=== PATIENT | male | born 1985 | race American Indian/Alaskan Native ===

== ENCOUNTER 2019-09-24 18:18 | Observation (INO) | payer OTHER ==
--- NOTE | 2019-09-24 18:45 | Event Note ---
ED Screening Note ED Screening Note: states that two weeks ago he found out he has high blood pressure when he was arrested states he has been taking his labetalol 20mg states that he began having chest tightness today states that he had tingling sensation in his right arm has not seen a doctor in 2 years PMHx none no allergies to meds +tobacco +ETOH, 1/2 pint a day of liquor and 1 beer a day has used cocaine before, two days ago This initial assessment/diagnostic orders/clinical plan/treatment(s) is/are subject to change based on patients health status, clinical progression and re- assessment by fellow clinical providers in the ED. Further treatment and workup at subsequent clinical providers discretion. Patient/guardian urged not to elope from the ED as their condition may be serious if not clinically assessed and managed. Initial orders include: CP protocol
[2019-09-24 19:01] LABS: Basophils # (Auto) 0.1 K/mm3 (0.0-0.1); Basophils % (Auto) 1.1 % (0.0-1.8); Eosinophils # (Auto) 0.3 K/mm3 (0.0-0.4); Eosinophils % (Auto) 2.9 % (0.0-4.3); Hematocrit 48.3 % (35.5-45.6); Hemoglobin 16.8 gm/dl (11.8-15.2); Lymphocytes # (Auto) 3.1 K/mm3 (1.2-5.4); Lymphocytes % (Auto) 28.3 % (13.4-35.0); Mean Corpuscular HGB Conc 35 % (32-34); Mean Corpuscular Volume 94 fl (84-94); Monocytes # (Auto) 0.7 K/mm3 (0.0-0.8); Monocytes % (Auto) 6.3 % (0.0-7.3); Platelet Count 287 K/mm3 (140-440); Red Blood Count 5.13 M/mm3 (3.65-5.03)
[2019-09-24 19:04] LABS: Bilirubin,Urine NEG (Negative); Blood,Urine NEG (Negative); Color,Urine Yellow (Yellow); Mucus,Urine FEW /HPF
[2019-09-24 19:12] LABS: Amphetamine Screen,Urine PRESUMPTIVE NEGATIVE; Benzodiazepines Screen,Urine PRESUMPTIVE NEGATIVE; Cannabinoid Screen,Urine PRESUMPTIVE NEGATIVE; Methadone Screen,Urine PRESUMPTIVE NEGATIVE; Opiate Screen,Urine PRESUMPTIVE NEGATIVE
[2019-09-24 19:14] LABS: INR 0.98 (0.87-1.13); Partial Thromboplastin Time 27.4 Sec. (24.2-36.6)
[2019-09-24 19:25] LABS: Cocaine Screen,Urine PRESUMPTIVE POSITIVE
[2019-09-24 19:27] LABS: Alanine Aminotransferase 37 units/L (7-56); Albumin 4.8 g/dL (3.9-5); BUN/Creatinine Ratio 9; Blood Urea Nitrogen 10 mg/dL (9-20); Calcium 9.9 mg/dL (8.4-10.2); Hemolysis Index 9
--- NOTE | 2019-09-24 19:35 | XRay Report ---
CHEST 2 VIEWS INDICATION / CLINICAL INFORMATION: Chest Pain. COMPARISON: None available. FINDINGS: SUPPORT DEVICES: None. HEART / MEDIASTINUM: No significant abnormality. LUNGS / PLEURA: No significant pulmonary or pleural abnormality. No pneumothorax. ADDITIONAL FINDINGS: No significant additional findings. IMPRESSION: 1. No acute findings. Signer Name: Linda Pereira MD Signed: 09/24/2019 7:31 PM Workstation Name: [id number]
[2019-09-24] MEDS ORDERED: ASPIRIN 325 MG TAB PO ONE (22:07)
--- NOTE | 2019-09-24 22:14 | Emergency Department Report ---
ED Chest Pain HPI - General Chief Complaint: High BP Stated Complaint: BP HIGH Time Seen by Provider: 09/24/19 18:41 Source: patient Mode of arrival: Ambulatory Limitations: No Limitations - History of Present Illness Initial Comments: 34-year-old male with history of hypertension presents to ED with chest pain. Patient states he was driving down the street and began to experience left sternal pressure in his chest. Patient reports pain radiating into the right arm. He reports associated nausea and diaphoresis with this pain. Patient denies chest pain, leg pain or shortness of breath. He denies fever or cough. Patient states he found out that his blood pressure was elevated after being incarcerated. Patient has been taking his 's labetalol 200 mg. Patient reports cocaine use 3 days ago. He also reports daily alcohol use. Patient does not currently have a PCP. MD Complaint: chest pain -: This afternoon Onset: during rest Pain Location: substernal Pain Radiation: RUE Severity: moderate Quality: pressure Consistency: now resolved Improves With: nothing Worsens With: nothing re: nausea, diaphoresis. denies: vomting, dyspnea, sense of impending doom Other Symptoms: denies: cough, fever, leg swelling Treatments Prior to Arrival: none - Related Data Previous Rx's Medication Instructions Recorded Last Taken Type Aspirin EC [Halfprin EC] 81 mg PO QDAY #30 tablet. 09/25/19 Unknown Rx Chlorthalidone [Thalitone] 25 mg PO QDAY #30 tablet 09/25/19 Unknown Rx NIFEdipine XL [Procardia Xl] 60 mg PO QDAY #30 tablet 09/25/19 Unknown Rx Allergies Allergy/AdvReac Type Severity Reaction Status Date / Time No Known Allergies Allergy Unverified 09/24/19 18:21 Heart Score - HEART Score History: Moderately suspicious EKG: Non-specific Age: < 45 Risk factors: 1-2 risk factors Troponin: < normal limit HEART Score: 3 ED Review of Systems ROS: Stated complaint: BP HIGH Other details as noted in HPI Comment: All other systems reviewed and negative Constitutional: denies: chills, fever Respiratory: denies: cough, shortness of breath Cardiovascular: chest pain Gastrointestinal: nausea. denies: abdominal pain, vomiting Musculoskeletal: other (Denies leg pain or swelling) ED Past Medical Hx - Past Medical History Previous Medical History?: No - Surgical History Past Surgical History?: No - Social History Smoking Status: Current Every Day Smoker Substance Use Type: Alcohol - Medications Home Medications: Home Medications Medication Instructions Recorded Confirmed Last Taken Type Aspirin EC [Halfprin EC] 81 mg PO QDAY #30 tablet. 09/25/19 Unknown Rx Chlorthalidone [Thalitone] 25 mg PO QDAY #30 tablet 09/25/19 Unknown Rx NIFEdipine XL [Procardia Xl] 60 mg PO QDAY #30 tablet 09/25/19 Unknown Rx ED Physical Exam - General Limitations: No Limitations ED Course Vital Signs 09/24/19 09/24/19 09/24/19 18:21 21:46 22:00 Temperature 98 F Pulse Rate 100 H Respiratory 18 Rate Blood Pressure 189/123 170/115 O2 Sat by Pulse 100 98 98 Oximetry 09/24/19 09/24/19 09/24/19 22:16 22:30 22:33 Temperature Pulse Rate 72 Respiratory Rate Blood Pressure 170/115 207/141 207/141 O2 Sat by Pulse 98 99 Oximetry 09/24/19 09/24/19 09/24/19 22:46 22:51 23:00 Temperature 98.4 F Pulse Rate Respiratory Rate Blood Pressure 170/115 168/116 O2 Sat by Pulse 98 98 Oximetry 09/24/19 09/24/19 09/24/19 23:16 23:20 23:30 Temperature Pulse Rate 81 Respiratory Rate Blood Pressure 168/116 168/116 O2 Sat by Pulse 98 97 Oximetry 09/24/19 23:38 Temperature Pulse Rate Respiratory Rate Blood Pressure 168/116 O2 Sat by Pulse 97 Oximetry ED Medical Decision Making - Lab Data Result diagrams: 09/25/19 05:07 09/25/19 05:07 - EKG Data -: EKG Interpreted by Ar EKG shows normal: sinus rhythm, axis, intervals, QRS complexes Rate: normal - EKG Data Interpretation: other (lateral T wave inversions) - Radiology Data Radiology results: report reviewed, image reviewed - Medical Decision Making 34 yo M w/ uncontrolled HTN, chest pain, cocaine abuse, T wave inversions on EKG. Troponin negative. Chest pain improved currently. Will admit to hospitalist for cardiac workup. - Differential Diagnosis ACS, HTN, cocaine abuse Critical care attestation.: If time is entered above; I have spent that time in minutes in the direct care of this critically ill patient, excluding procedure time. ED Disposition Clinical Impression: Acute chest pain, Hypertensive urgency, Cocaine abuse Disposition: DC-09 OP ADMIT IP TO THIS HOSP Is pt being admited?: Yes Condition: Stable Time of Disposition: 22:15
[2019-09-24] MEDS ORDERED: NITROGLYCERIN 0.4 MG TAB SUBL SL PRN (23:16)
[2019-09-24] MEDS ORDERED: ONDANSETRON 4 MG/2 ML INJ IV PRN (23:16)
[2019-09-24] MEDS ORDERED: MAGNESIUM HYDROXIDE (MOM) ORAL LIQD UDC PO PRN (23:16)
[2019-09-24] MEDS ORDERED: hydrALAZINE 20 MG/1 ML INJ IV PRN (23:16)
[2019-09-24] MEDS ORDERED: MORPHINE 2 MG/1 ML INJ IV PRN (23:16)
[2019-09-24] MEDS ORDERED: ACETAMINOPHEN 325 MG TAB PO PRN (23:16)
--- NOTE | 2019-09-24 23:28 | History and Physical Report ---
History of Present Illness Date of examination: 09/24/19 Date of admission: 09/24/19 22:16 Chief complaint: Chest pain History of present illness: 34-year-old male with known history of hypertension, cocaine abuse and current every day smoker presenting to the emergency room today complaining of left- sided chest pain. Chest pain is said to radiate into the right upper extremity. He has had associated nausea but no vomiting and he has had some diaphoresis. He denies any fever or chills, denies any headache or dizziness. There is no known relieving or exacerbating factor for his chest pain. He admits that he has not been quite compliant with his blood pressure medications. He has had to use his mother's labetalol occasionally for his blood pressure. He admits to cocaine use about 3 days ago and also drinks alcohol almost on a daily basis. Upon arrival in the emergency room blood pressure was quite elevated and was given some IV labetalol with some improvement. EKG revealed some T wave depression in the lateral leads Past History Past Medical History: hypertension Past Surgical History: No surgical history Social history: smoking (Current daily smoker), other (Moves cocaine occasionally, last use was about 5 days ago) Family history: hypertension Medications and Allergies Allergies Allergy/AdvReac Type Severity Reaction Status Date / Time No Known Allergies Allergy Unverified 09/24/19 18:21 Active Meds: Active Medications Acetaminophen (Tylenol) 650 mg PO Q4H PRN PRN Reason: Pain MILD(1-3)/Fever >100.5/VIDAL Aspirin (Ecotrin) 325 mg PO QDAY OLEGARIO Hydralazine HCl (Apresoline) 10 mg IV Q6HR PRN PRN Reason: FOR SBP > target Magnesium Hydroxide (Milk Of Magnesia) 30 ml PO Q4H PRN PRN Reason: Constipation Morphine Sulfate (Morphine) 2 mg IV Q5MIN PRN PRN Reason: Chest Pain unrelieved by NTG Nitroglycerin (Nitrostat) 0.4 mg SL Q5M PRN PRN Reason: Chest Pain Ondansetron HCl (Zofran) 4 mg IV Q8H PRN PRN Reason: Nausea And Vomiting Sodium Chloride (Sodium Chloride Flush Syringe 10 Ml) 10 ml IV BID OLEGARIO Sodium Chloride (Sodium Chloride Flush Syringe 10 Ml) 10 ml IV PRN PRN PRN Reason: LINE FLUSH Review of Systems Constitutional: no fever, no chills Ears, nose, mouth and throat: no nasal congestion, no sore throat Cardiovascular: chest pain, no palpitations, no lightheadedness Respiratory: no cough, no shortness of breath Gastrointestinal: no abdominal pain, no nausea, no vomiting, no constipation Genitourinary Male: no dysuria, no hematuria, no flank pain Musculoskeletal: no neck pain, no low back pain Integumentary: no rash, no pruritis Neurological: no headaches, no change in mentation, no confusion Psychiatric: no anxiety, no depression Exam - Constitutional Vitals: Temp Pulse Resp BP Pulse Ox 98.4 F 72 18 170/115 98 09/24/19 22:51 09/24/19 22:33 09/24/19 18:21 09/24/19 22:46 09/24/19 22:46 General appearance: Present: no acute distress, well-nourished - EENT Eyes: Present: PERRL, EOM intact. Absent: scleral icterus ENT: hearing intact, clear oral mucosa, dentition normal - Neck Neck: Present: supple, normal ROM - Respiratory Respiratory effort: normal Respiratory: bilateral: CTA - Cardiovascular Rhythm: regular Heart Sounds: Present: S1 & S2. Absent: gallop, systolic murmur, diastolic mur mur, rub - Extremities Extremities: no ischemia, pulses intact, pulses symmetrical, No edema, Full ROM Peripheral Pulses: within normal limits - Abdominal General gastrointestinal: Present: soft, non-tender, non-distended, normal bowel sounds - Integumentary Integumentary: Present: clear, warm, dry. Absent: jaundice, rash - Musculoskeletal Musculoskeletal: strength equal bilaterally - Psychiatric Psychiatric: appropriate mood/affect, intact judgment & insight, memory intact, cooperative - Neurologic Neurologic: CNII-XII intact, moves all extremities HEART Score - HEART Score Troponin: Troponin T < 0.010 ng/mL (0.00-0.029) 09/24/19 21:37 Results - Labs CBC & Chem 7: 09/25/19 05:07 09/24/19 18:49 Labs: Abnormal lab results 09/24/19 09/24/19 Range/Units 18:49 18:49 RBC 5.13 H (3.65-5.03) M/mm3 Hgb 16.8 H (11.8-15.2) gm/dl Hct 48.3 H (35.5-45.6) % MCH 33 H (28-32) pg MCHC 35 H (32-34) % RDW 13.0 L (13.2-15.2) % Glucose 116 H (75-100) mg/dL Total Protein 8.5 H (6.3-8.2) g/dL Assessment and Plan - Patient Problems (1) Acute chest pain Current Visit: Yes Status: Acute Plan to address problem: Patient admitted and placed on telemetry. Will check serial cardiac enzymes. Patient placed on daily aspirin, sublingual nitroglycerin and IV morphine as needed for chest pain. Patient will be scheduled for stress test. We will also place a consult to cardiology for evaluation. (2) Cocaine abuse Current Visit: Yes Status: Acute Plan to address problem: Patient counseled on quitting illicit drug use. (3) Hypertensive urgency Current Visit: Yes Status: Acute Plan to address problem: Patient placed on IV hydralazine as needed for blood pressure control. (4) DVT prophylaxis Current Visit: Yes Status: Acute Plan to address problem: Will place on subcutaneous Lovenox. (5) Full code status Current Visit: Yes Status: Acute
[2019-09-25] MEDS ORDERED: ZOLPIDEM 5 MG TAB PO PRN (00:01)
[2019-09-25 05:55] LABS: Basophils # (Auto) 0.1 K/mm3 (0.0-0.1); Basophils % (Auto) 0.9 % (0.0-1.8); Eosinophils # (Auto) 0.3 K/mm3 (0.0-0.4); Eosinophils % (Auto) 3.2 % (0.0-4.3); Hematocrit 44.3 % (35.5-45.6); Hemoglobin 15.7 gm/dl (11.8-15.2); Lymphocytes # (Auto) 2.6 K/mm3 (1.2-5.4); Lymphocytes % (Auto) 24.6 % (13.4-35.0); Mean Corpuscular HGB Conc 35 % (32-34); Mean Corpuscular Volume 94 fl (84-94); Monocytes # (Auto) 0.7 K/mm3 (0.0-0.8); Monocytes % (Auto) 6.2 % (0.0-7.3); Platelet Count 243 K/mm3 (140-440); Red Blood Count 4.73 M/mm3 (3.65-5.03); Red Cell Distribution Width 12.9 % (13.2-15.2)
[2019-09-25 06:10] LABS: BUN/Creatinine Ratio 13; Blood Urea Nitrogen 13 mg/dL (9-20); Calcium 9.6 mg/dL (8.4-10.2); Hemolysis Index 24
[2019-09-25] MEDS ORDERED: REGADENOSON 0.4 MG/5 ML INJ IV ONE ×2 (08:06→09:50)
[2019-09-25] MEDS ORDERED: ASPIRIN EC 325 MG TAB PO SCH (10:00)
[2019-09-25] MEDS ORDERED: NIFEdipine XL 60 MG TAB PO SCH (11:00)
[2019-09-25] MEDS ORDERED: CHLORTHALIDONE 25 MG TAB PO SCH (11:00)
--- NOTE | 2019-09-25 11:08 | Consultation ---
History of Present Illness Consult date: 09/25/19 Consult reason: chest pain, hypertension History of present illness: The patient is a 34-year-old man with a history of chronic uncontrolled hypertension. He states he has not seen his doctor in many years despite knowing he has chronic hypertension. He often takes his 's labetalol when he gets a persistent headache associated with uncontrolled hypertension. Yesterday, he ultimately presented to the emergency room with headache, chest pressure and a general feeling of unwell. His systolic blood pressure in the emergency room was 180s to 200s. He was admitted to the hospital for further evaluation, cardiac consultation was requested. EKG is normal sinus rhythm, left ventricle hypertrophy and nonspecific T wave repolarization abnormalities of LVH. Serial cardiac troponin levels were normal. Today, he underwent an exercise thallium stress test during which he exercised for 9 minutes of a Phil protocol. There was no chest pain, no ST changes of ischemia, thallium images are pending for final interpretation of this test. Past History Past Medical History: hypertension Past Surgical History: No surgical history Social history: smoking (Current daily smoker), other (Moves cocaine occasionally, last use was about 5 days ago) Family history: hypertension Medications and Allergies Allergies Allergy/AdvReac Type Severity Reaction Status Date / Time No Known Allergies Allergy Unverified 09/24/19 18:21 Active Meds: Active Medications Acetaminophen (Tylenol) 650 mg PO Q4H PRN PRN Reason: Pain MILD(1-3)/Fever >100.5/VIDAL Aspirin (Ecotrin) 325 mg PO QDAY OLEGARIO Chlorthalidone (Thalitone) 25 mg PO QDAY OLEGARIO Enoxaparin Sodium (Enoxaparin) 40 mg SUB-Q QDAY@2200 OLEGARIO Hydralazine HCl (Apresoline) 10 mg IV Q6HR PRN PRN Reason: FOR SBP > target Last Admin: 09/25/19 00:33 Dose: 10 mg Documented by: Magnesium Hydroxide (Milk Of Magnesia) 30 ml PO Q4H PRN PRN Reason: Constipation Morphine Sulfate (Morphine) 2 mg IV Q5MIN PRN PRN Reason: Chest Pain unrelieved by NTG Last Admin: 09/25/19 01:28 Dose: 2 mg Documented by: Nifedipine (Procardia Xl) 60 mg PO QDAY OLEGARIO Nitroglycerin (Nitrostat) 0.4 mg SL Q5M PRN PRN Reason: Chest Pain Ondansetron HCl (Zofran) 4 mg IV Q8H PRN PRN Reason: Nausea And Vomiting Potassium Chloride (K-Dur) 40 meq PO ONCE ONE Stop: 09/25/19 11:31 Sodium Chloride (Sodium Chloride Flush Syringe 10 Ml) 10 ml IV BID OLEGARIO Sodium Chloride (Sodium Chloride Flush Syringe 10 Ml) 10 ml IV PRN PRN PRN Reason: LINE FLUSH Last Admin: 09/25/19 01:32 Dose: 10 ml Documented by: Zolpidem Tartrate (Ambien) 5 mg PO QHS PRN PRN Reason: Sleep Last Admin: 09/25/19 00:33 Dose: 5 mg Documented by: Review of Systems Cardiovascular: chest pain, no orthopnea, no palpitations, no rapid/irregular heart beat, no edema, no syncope, no lightheadedness, no shortness of breath Physical Examination Vital Signs Temp Pulse Resp BP Pulse Ox 98 F 100 H 18 189/123 100 09/24/19 18:21 09/24/19 18:21 09/24/19 18:21 09/24/19 18:21 09/24/19 18:21 General appearance: no acute distress HEENT: Positive: PERRL Neck: Positive: neck supple Cardiac: Positive: Reg Rate and Rhythm Lungs: Positive: clear to auscultation Neuro: Positive: Grossly Intact Abdomen: Positive: Soft Male genitourinary: Positive: deferred Skin: Positive: Clear Extremities: Absent: edema Results 09/25/19 05:07 09/25/19 05:07 Cardiac Enzymes 09/24/19 Range/Units 18:49 AST 40 (5-40) units/L Coagulation 09/24/19 09/25/19 Range/Units 18:49 05:07 PT 12.8 13.0 (12.2-14.9) Sec. INR 0.98 1.00 (0.87-1.13) APTT 27.4 (24.2-36.6) Sec. CBC 09/24/19 09/25/19 Range/Units 18:49 05:07 WBC 10.8 10.7 (4.5-11.0) K/mm3 RBC 5.13 H 4.73 (3.65-5.03) M/mm3 Hgb 16.8 H 15.7 H (11.8-15.2) gm/dl Hct 48.3 H 44.3 (35.5-45.6) % Plt Count 287 243 (140-440) K/mm3 Lymph # 3.1 2.6 (1.2-5.4) K/mm3 [place] # 0.7 0.7 (0.0-0.8) K/mm3 Eos # 0.3 0.3 (0.0-0.4) K/mm3 Baso # 0.1 0.1 (0.0-0.1) K/mm3 Comprehensive Metabolic Panel 09/24/19 09/25/19 Range/Units 18:49 05:07 Sodium 138 137 (137-145) mmol/L Potassium 4.4 3.4 L D (3.6-5.0) mmol/L Chloride 100.1 99.8 (98-107) mmol/L Carbon Dioxide 24 23 (22-30) mmol/L BUN 10 13 (9-20) mg/dL Creatinine 1.1 1.0 (0.8-1.5) mg/dL Glucose 116 H 90 (75-100) mg/dL Calcium 9.9 9.6 (8.4-10.2) mg/dL AST 40 (5-40) units/L ALT 37 (7-56) units/L Alkaline Phosphatase 89 (35-129) units/L Total Protein 8.5 H (6.3-8.2) g/dL Albumin 4.8 (3.9-5) g/dL EKG interpretations - Telemetry EKG Rhythm: Sinus Rhythm Assessment and Plan - Patient Problems (1) Uncontrolled hypertension Current Visit: Yes Status: Acute Plan to address problem: The patient's main clinical problem at this point is chronic uncontrolled hypertension for which he is noncompliant. I would recommend Procardia XL 60 mg daily and chlorthalidone 25 mg p.o. daily for management of hypertension. I have also advised a salt restricted diet, and regular home monitoring of his blood pressure. (2) Chest pain Current Visit: Yes Status: Acute Plan to address problem: Chest pain is atypical, low suspicion for acute coronary syndrome. He exercised well on the treadmill with no chest pain and no ST changes of ischemia. Thallium images are pending.
[2019-09-25] MEDS ORDERED: POTASSIUM CHLORIDE ER 20 MEQ TAB PO ONE (11:30)
--- NOTE | 2019-09-25 12:06 | Treadmill Report ---
THALLIUM STRESS TEST LEFT VENTRICLE: Left ventricular chamber size is within normal limits. Perfusion study demonstrates homogeneous uptake of the tracer in all segments, no significant defects identified. Gated analysis is suboptimal, suggests mild to moderate left ventricular dysfunction with ejection fraction 38%. CONCLUSION: No demonstrable ischemia on thallium perfusion imaging. Recommend clinical correlation and echocardiographic reassessment of left ventricular chamber size and systolic function. JOB# [id number] CA/NTS
--- NOTE | 2019-09-25 13:35 | Discharge Summary ---
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 His systolic blood pressure in the emergency room was 180s to 200s. He was admitted to the hospital for further evaluation, cardiac consultation was requested. EKG showed normal sinus rhythm, left ventricle hypertrophy and nonspecific T wave repolarization abnormalities of LVH. Serial cardiac troponin levels were normal. Today, he underwent an exercise thallium stress test during which he exercised for 9 minutes of a Phil protocol, there was no chest pain, no ST changes of ischemia, thallium images showed normal perfusion, no ischemia. His UDS was positive for cocaine. he was counsellled for cessation and medication compliance. Patient was placed on procardia and cholthaladone for BP control and instructed to follow up with Dr Lozano next week for BP check and Echo will be done as outpatient. He was discharge home in stable condition. Discharge diagnosis: Atypical chest pain, likely from cocaine induced Accelerated HTN, due to noncompliance Cocaine abuse, counselled Obesity, diet and exercise recommendation provided Noncompliance, counselled Disposition: DC-01 TO HOME OR SELFCARE Time spent for discharge: 34 minutes Core Measure Documentation - Palliative Care Palliative Care/ Comfort Measures: Not Applicable - Core Measures Any of the following diagnoses?: none Exam - Constitutional Vitals: Temp Pulse Resp BP Pulse Ox 98.2 F 78 18 159/101 100 09/25/19 04:39 09/25/19 07:20 09/25/19 12:58 09/25/19 12:58 09/25/19 07:18 General appearance: Present: no acute distress, well-nourished - EENT Eyes: Present: PERRL ENT: hearing intact, clear oral mucosa - Neck Neck: Present: supple, normal ROM - Respiratory Respiratory effort: normal Respiratory: bilateral: CTA - Cardiovascular Heart Sounds: Present: S1 & S2. Absent: rub, click - Extremities Extremities: pulses symmetrical, No edema Peripheral Pulses: within normal limits - Abdominal General gastrointestinal: Present: soft, non-tender, non-distended, normal bowel sounds - Integumentary Integumentary: Present: clear, warm, dry - Musculoskeletal Musculoskeletal: gait normal, strength equal bilaterally - Psychiatric Psychiatric: appropriate mood/affect, intact judgment & insight - Neurologic Neurologic: CNII-XII intact, moves all extremities Plan Activity: advance as tolerated Weight Bearing Status: Weight Bear as Tolerated Diet: low fat, low salt Special Instructions: other (abstinance form cocaine) Follow up with: PRIMARY CARE, [Primary Care Provider] - 3-5 Days LORENA LOZANO MD [Staff Physician] - 7 Days Prescriptions: Aspirin EC [Halfprin EC] 81 mg PO QDAY #30 tablet. NIFEdipine XL [Procardia Xl] 60 mg PO QDAY #30 tablet Chlorthalidone [Thalitone] 25 mg PO QDAY #30 tablet
[2019-09-25 14:24] VITALS: BP 151/103
[2019-09-25] MEDS ORDERED: ENOXAPARIN 40 MG/0.4 ML INJ SUB-Q SCH (22:00)
== END 2019-09-25 19:58 | disposition home or self-care (01) ==
LOC: ED 18:18 → 4A 22:16
PROVIDERS: ADMIT Internal Medicine Geriatric Medicine; ATTEND Internal Medicine
DX: R07.89 Other chest pain (principal); I16.0 Hypertensive urgency; F14.10 Cocaine abuse, uncomplicated; F17.200 Nicotine dependence, unspecified, uncomplicated; Z79.82 Long term (current) use of aspirin; Z79.899 Other long term (current) drug therapy
CPT/HCPCS: 36415; 71046; 78452; 80048; 80053; 80307; 81001; 84484; 85025; 85610; 85730; 93005; 93017; 96374; 96375; 99285; A9502; G0378; J0360; J2270; J2785